=== PATIENT | male | born 1955 | race Caucasian/White ===

== ENCOUNTER 2019-05-31 15:36 | Emergency (ER) | payer OTHER ==
[2019-05-31] MEDS ORDERED: Aspirin 81 MG Tab.Chew PO ONE (15:55)
[2019-05-31] MEDS ORDERED: Sodium Chloride 0.9% 1,000 ML IV ONE (15:55)
[2019-05-31] MEDS: Nitroglycerin 0.4 MG Tab.SL SL PRN ×2 (16:03→16:10)
--- NOTE | 2019-05-31 16:10 | EDM.PDOC ---
ED HPI GENERAL MEDICAL PROBLEM - General Stated Complaint: CHEST PX Time Seen by Provider: 05/31/19 15:45 Source of Information: Reports: Patient, Family (Daughter and niece interpreting ) History Limitations: Reports: No Limitations - History of Present Illness INITIAL COMMENTS - FREE TEXT/NARRATIVE: Patient presents with chest pain and left arm tingling that started at 1515 today while he was shoveling grain. He says initially pain was sharp, stabbing rated 8, but is now just pressure; he also feels quite weak. No pain in neck or jaw. chest left Pain Score (Numeric/FACES): 8 - Related Data Allergies Allergy/AdvReac Type Severity Reaction Status Date / Time No Known Allergies Allergy Verified 05/31/19 16:23 Home Meds: Home Meds metFORMIN HCl [Metformin HCl] 1,000 mg PO 1200 05/31/19 [History] ED ROS GENERAL - Review of Systems Review Of Systems: See Below Constitutional: Reports: Weakness. Denies: Fever, Chills HEENT: Denies: Ear Pain, Throat Pain, Vision Change Respiratory: Reports: Shortness of Breath. Denies: Cough Cardiovascular: Reports: Chest Pain. Denies: Lightheadedness, Syncope Endocrine: Denies: Fatigue GI/Abdominal: Denies: Abdominal Pain, Diarrhea, Vomiting : Denies: Dysuria, Flank Pain Musculoskeletal: Denies: Neck Pain, Shoulder Pain, Arm Pain, Back Pain Skin: Denies: Cyanosis, Jaundice, Mottled, Pallor, Diaphoresis Neurological: Denies: Confusion, Dizziness, Headache, Seizure, Syncope, Trouble Speaking, Difficulty Walking Psychiatric: Denies: Agitation, Anxiety, Confusion ED EXAM, GENERAL - Physical Exam Exam: See Below Exam Limited By: No Limitations General Appearance: Alert, WD/WN, No Apparent Distress Eye Exam: Bilateral Eye: EOMI, Normal Inspection, PERRL Ears: Normal External Exam, Hearing Grossly Normal Nose: Normal Inspection, No Blood Throat/Mouth: Normal Inspection, Normal Lips, Normal Voice, No Airway Compromise Head: Atraumatic, Normocephalic Neck: Normal Inspection, Supple, Non-Tender, Full Range of Motion Respiratory/Chest: No Respiratory Distress, Lungs Clear, Normal Breath Sounds, No Accessory Muscle Use, Chest Non-Tender, Other (pressure is currently in left upper chest, not worsened by palpation) Cardiovascular: Regular Rate, Rhythm, Systolic Murmur (they are not sure but patient's niece thinks he had a murmur as young child) Peripheral Pulses: 1+: Carotid (L), 2+: Carotid (R), Radial (L), Radial (R), Posterior Tibial (L), Posterior Tibial (R), Dorsalis Pedis (L), Dorsalis Pedis ( R) GI/Abdominal: Normal Bowel Sounds, Soft, Non-Tender, No Organomegaly, No Distention, No Abnormal Bruit Back Exam: Normal Inspection, Full Range of Motion. No: CVA Tenderness (L), CVA Tenderness (R) Extremities: Normal Inspection, Normal Range of Motion, Non-Tender Neurological: Alert, Oriented, Normal Cognition, No Motor/Sensory Deficits Psychiatric: Normal Affect, Normal Mood Skin Exam: Warm, Dry, Intact, Normal Color, No Rash Course - Vital Signs Last Recorded V/S: Last Vital Signs Temp 97.6 F 05/31/19 19:40 Pulse 60 05/31/19 19:40 Resp 16 05/31/19 19:40 BP 128/61 05/31/19 19:40 Pulse Ox 98 05/31/19 19:40 - Orders/Labs/Meds Orders: Active Orders 24 hr Category Date Time Status EKG Documentation Completion [RC] ASDIRECTED Care 05/31/19 15:54 Active EKG 12 Lead [EK] Routine Ther 05/31/19 15:54 Ordered Labs: Laboratory Tests 05/31/19 05/31/19 05/31/19 Range/Units 16:02 16:05 16:05 WBC 8.40 (5.00-10.00) 10^3/uL RBC 4.31 L (4.50-6.00) 10^6/uL Hgb 14.4 (13.0-17.0) g/dL Hct 41.0 (40.0-52.0) % MCV 95.1 H (82.0-92.0) fL MCH 33.4 H (27.0-31.0) pg MCHC 35.1 (32.0-36.0) g/dL RDW 12.7 (11.5-14.5) % Plt Count 287 (150-400) 10^3/uL MPV 11.3 H (7.4-10.4) fL Immature Gran % (Auto) 0.1 (0.0-5.0) % Neut % (Auto) 62.4 (50.0-70.0) % Lymph % (Auto) 28.2 (20.0-40.0) % Deuel % (Auto) 6.9 (2.0-8.0) % Eos % (Auto) 1.9 (1.0-3.0) % Baso % (Auto) 0.5 (0.0-1.0) % Immature Gran # (Auto) 0.01 (0.00-0.50) 10^3/uL Neut # (Auto) 5.24 (2.50-7.00) 10^3/uL Lymph # (Auto) 2.37 (1.00-4.00) 10^3/uL Deuel # (Auto) 0.58 (0.10-0.80) 10^3/uL Eos # (Auto) 0.16 (0.10-0.30) 10^3/uL Baso # (Auto) 0.04 (0.00-0.10) 10^3/uL Sodium 145 (136-145) mmol/L Potassium 3.9 (3.3-5.3) mmol/L Chloride 107 (98-115) mmol/L Carbon Dioxide 26.0 (21.0-32.0) mmol/L Anion Gap 15.9 H (5-15) mmol/L BUN 21 (6-25) mg/dL Creatinine 1.15 (0.51-1.17) mg/dL Est Cr Clr Drug Dosing 64.43 mL/min Estimated GFR (MDRD) > 60 mL/min Glucose 96 (75 - 99) mg/dL POC Glucose 131 H (74-106) mg/dl Calcium 8.8 (8.7-10.3) mg/dL Total Bilirubin 0.5 (0.2-1.0) mg/dL AST 13 L (15-37) U/L ALT 26 (12-78) U/L Alkaline Phosphatase 64 (46-116) IU/L Troponin I 0.05 (0.00-0.070) ng/mL Total Protein 7.3 (6.4-8.2) g/dL Albumin 3.79 (3.00-4.80) g/dL 05/31/19 Range/Units 19:03 WBC (5.00-10.00) 10^3/uL RBC (4.50-6.00) 10^6/uL Hgb (13.0-17.0) g/dL Hct (40.0-52.0) % MCV (82.0-92.0) fL MCH (27.0-31.0) pg MCHC (32.0-36.0) g/dL RDW (11.5-14.5) % Plt Count (150-400) 10^3/uL MPV (7.4-10.4) fL Immature Gran % (Auto) (0.0-5.0) % Neut % (Auto) (50.0-70.0) % Lymph % (Auto) (20.0-40.0) % Deuel % (Auto) (2.0-8.0) % Eos % (Auto) (1.0-3.0) % Baso % (Auto) (0.0-1.0) % Immature Gran # (Auto) (0.00-0.50) 10^3/uL Neut # (Auto) (2.50-7.00) 10^3/uL Lymph # (Auto) (1.00-4.00) 10^3/uL Deuel # (Auto) (0.10-0.80) 10^3/uL Eos # (Auto) (0.10-0.30) 10^3/uL Baso # (Auto) (0.00-0.10) 10^3/uL Sodium (136-145) mmol/L Potassium (3.3-5.3) mmol/L Chloride (98-115) mmol/L Carbon Dioxide (21.0-32.0) mmol/L Anion Gap (5-15) mmol/L BUN (6-25) mg/dL Creatinine (0.51-1.17) mg/dL Est Cr Clr Drug Dosing mL/min Estimated GFR (MDRD) mL/min Glucose (75 - 99) mg/dL POC Glucose (74-106) mg/dl Calcium (8.7-10.3) mg/dL Total Bilirubin (0.2-1.0) mg/dL AST (15-37) U/L ALT (12-78) U/L Alkaline Phosphatase (46-116) IU/L Troponin I 0.05 (0.00-0.070) ng/mL Total Protein (6.4-8.2) g/dL Albumin (3.00-4.80) g/dL Meds: Medications Discontinued Medications Generic Name Dose Route Start Last Admin Trade Name Freq PRN Reason Stop Dose Admin Aspirin 324 mg 05/31/19 15:55 05/31/19 15:58 Aspirin PO 05/31/19 15:56 324 mg ONETIME ONE Administration Sodium Chloride 1,000 mls @ 999 mls/hr 05/31/19 15:55 05/31/19 16:04 Normal Saline IV 05/31/19 16:55 999 mls/hr .BOLUS ONE Administration Sodium Chloride 50 mls @ 200 mls/min 05/31/19 16:30 05/31/19 17:11 Normal Saline IV 200 mls/min ASDIRECTED HAYDEE Administration Iopamidol 75 ml 05/31/19 16:31 05/31/19 17:07 Isovue-370 (76%) IVPUSH 05/31/19 16:32 75 ml ONETIME ONE Administration Iopamidol 100 ml 05/31/19 17:09 05/31/19 17:11 Isovue-370 (76%) IV 05/31/19 17:10 75 ml ONETIME ONE Administration Nitroglycerin 0.4 mg 05/31/19 15:55 05/31/19 16:10 Nitrostat SL 0.4 mg Q5M PRN Administration Chest Pain - Re-Assessments/Exams Free Text/Narrative Re-Assessment/Exam: 05/31/19 16:11 After aspirin and initial nitro pressure down from 7 to 5. 05/31/19 16:30 Second nitro took pressure down to 3 but fluctuates up to 5 every couple minutes. The CXR shows borderline widened mediastinum and patient says he felt stabbing pain between his shoulder blades too initially. That along with the systolic murmur and weaker left carotid pulse, will get chest CT. Pressure is stable after the nitro, and fluids running. 05/31/19 17:36 Patient is now pain-free except feels slight pressure when he inhales. Chest CT is negative and I discussed directly with the radiologist who says the aorta is clearly seen and appears completely normal. Discussed findings with patient including the plan to run a second troponin. Initial trop is 0.05 Second troponin was unchanged. Patient was informed that there is no evidence of acute DC but there is likely some degree of blockage of circulation to his heart. He was recommended to follow up in a day or two with his PCP to recheck and discuss stress test. Patient discharged to home in stable condition. Departure - Departure Time of Disposition: 06:38 Disposition: Home, Self-Care 01 Condition: Good Clinical Impression: Chest pain Qualifiers: Ischemic chest pain type: stable angina pectoris Referrals: Kathryn Reeves PA-C [Primary Care Provider] - Forms: ED Department Discharge Additional Instructions: 1. Follow up with your PCP in 1-2 days for recheck and to schedule a stress test. 2. Take an aspirin daily. 3. Return to ER if chest pain returns. - My Orders Last 24 Hours: My Active Orders 05/31/19 15:54 EKG Documentation Completion [RC] ASDIRECTED EKG 12 Lead [EK] Routine - Assessment/Plan Last 24 Hours: My Active Orders 05/31/19 15:54 EKG Documentation Completion [RC] ASDIRECTED EKG 12 Lead [EK] Routine
--- NOTE | 2019-05-31 16:16 | CR ---
[id number] RAD/RAD Chest PA And Lateral EXAM: RAD Chest PA And Lateral CLINICAL DATA: CHEST PAIN COMPARISON: CORRELATION IS MADE WITH THE EXAM OF MAY 11, 2011 FINDINGS: The lungs are clear. The cardiomediastinal contour is prominent but stable. The regional bones and soft tissues are unremarkable. IMPRESSION: NO ACUTE PROCESS. Shiraz Carlos MD 05/31/19 [id number] Thank you for allowing us to participate in the care of your patient.
[2019-05-31] MEDS ORDERED: Iopamidol 755 Mg/ML 75 ML Bottle IVPUSH ONE (16:31)
[2019-05-31 16:47] LABS: ANION GAP 15.9 mmol/L (5-15); CHLORIDE,CL 107 mmol/L (98-115); SODIUM,NA 145 mmol/L (136-145)
[2019-05-31] MEDS: Sodium Chloride 0.9% 50 ML IV SCH ×2 (17:07→17:11)
[2019-05-31] MEDS ORDERED: Iopamidol 755 Mg/ML 100 ML Bottle IV ONE (17:09)
--- NOTE | 2019-05-31 17:14 | CT ---
[id number] CT/CT Chest W IV EXAM: CHEST CT WITH CONTRAST INDICATION: CHEST AND BACK PAIN. COMPARISON: Chest radiograph same date. DISCUSSION: Lungs are clear. No pleural or pericardial effusion. Normal heart size. No adenopathy. The osseous structures demonstrate changes of diffuse idiopathic skeletal hyperostosis. The bones are otherwise unremarkable. The upper abdomen is unremarkable. IMPRESSION: 1. Negative exam. Pérez Gomez MD 05/31/19 [id number] Thank you for allowing us to participate in the care of your patient.
== END 2019-05-31 20:00 | disposition home or self-care (01) ==
LOC: KA.ED 15:36
DX: I20.8 Other forms of angina pectoris (principal)
CPT/HCPCS: 71046; 71260; 80053; 82962; 84484; 85025; 93005; 96360; 96361; 99285-25; A9270-GY; J7030; J7050; Q9967